=== PATIENT | male | born 1975 | race Two or more races ===

== ENCOUNTER 2022-05-20 08:00 | Outpatient (CLI) | payer OTHER | END 2022-05-20 08:05 | disposition home or self-care (01) | LOC: PPH VACUNA 08:00 | PROVIDERS: ATTEND Emergency Medicine Pediatric Emergency Medicine | DX: Z23 Encounter for immunization (principal) ==

== ENCOUNTER 2023-05-25 09:45 | Outpatient (CLI) | payer OTHER | END 2023-05-25 10:00 | disposition home or self-care (01) | LOC: PPH VACUNA 09:45 | PROVIDERS: ATTEND Emergency Medicine Pediatric Emergency Medicine | DX: Z23 Encounter for immunization (principal) ==